=== PATIENT | male | born 1975 | race Caucasian/White ===

== ENCOUNTER 2018-08-06 15:14 | Emergency (ER) | payer BC, MEDICAID ==
--- NOTE | 2018-08-06 15:28 | Emergency Department Record ---
History of Present Illness - General Chief Complaint: Chest Pain Stated Complaint: CHEST PAIN Time Seen by Provider: 08/06/18 15:25 Source: Patient Mode of Arrival: Ambulatory Limitations: No limitations - History of Present Illness Initial Comments: The patient is here due to sharp stabbing L sided CP for almost 2 weeks. The pain onset is with any cough, twisting, bending or palpation. He denies any injury, SOB, BESSY, sweating, fever, or sputum production. The patient initially went to the [facility], [place] but was sent over to the ER. He denies any hx of similar problems and only has cardiac risk factors of tobacco use. MD Complaint: Chest pain Onset/Timin -: Days(s) Onset: During exertion Pain Location: Left chest Pain Radiation: None Severity: Severe Severity scale (1-10): 10 Quality: Sharp Consistency: Constant, Getting worse Improves With: Nothing Worsens With: Inspiration, Movement, Palpation Treatments Prior to Arrival: None - Related Data Home Medications Medication Instructions Recorded Confirmed Last Taken Atorvastatin Calcium 20 mg PO DAILY 08/06/18 08/06/18 08/05/18 Bupropion HCl [Bupropion HCl Sr] 150 mg PO DAILY 08/06/18 08/06/18 08/05/18 Doxepin HCl 25 mg PO DAILY 08/06/18 08/06/18 08/05/18 Montelukast Sodium [Singulair] 10 mg PO DAILY 08/06/18 08/06/18 08/06/18 Sertraline HCl [Zoloft] 100 mg PO DAILY 08/06/18 08/06/18 08/05/18 Previous Rx's Medication Instructions Recorded Naproxen [Naprosyn] 500 mg PO BID #14 tablet. 08/06/18 Allergies Allergy/AdvReac Type Severity Reaction Status Date / Time amoxicillin Allergy Intermediate ANAPHYLAXIS Verified 08/06/18 15:17 Penicillins Allergy Intermediate ANAPHYLAXIS Verified 12/29/13 06:47 Travel Screening - Travel/Exposure Within Last 30 Days Have you traveled within the last 30 days?: No Review of Systems Constitutional: Denies: Chills, Fever, Other ENT: Denies: Congestion, Throat pain Respiratory: Denies: Cough, Dyspnea Cardiovascular: Reports: Chest pain. Denies: Dyspnea on exertion, Palpitations Endocrine: Denies: Fatigue Gastrointestinal: Denies: Abdominal pain Genitourinary: Denies: Dysuria Musculoskeletal: Denies: Back pain Neurological: Denies: Abnormal gait Past Medical History - SOCIAL HISTORY Smoking Status: Current some day smoker Alcohol Use: Rare Drug Use: Rare Drug Use Detail:: Marijuana - RESPIRATORY Hx Respiratory Disorders: No - CARDIOVASCULAR Hx Cardio Disorders: No - NEURO Hx Neuro Disorders: Yes Hx Headaches: Yes (Migraines) - GI Hx GI Disorders: Yes Hx Irritable Bowel: Yes - Hx Genitourinary Disorders: No - ENDOCRINE Hx Endocrine Disorders: No - MUSCULOSKELETAL Hx Musculoskeletal Disorders: No - PSYCH Hx Psych Problems: No - HEMATOLOGY/ONCOLOGY Hx Hematology/Oncology Disorders: No Family Medical History Any Significant Family History?: No Physical Exam - General General Appearance: Alert, Oriented x3, Cooperative, No acute distress - Head Head exam: Atraumatic, Normocephalic - Eye Eye exam: Normal appearance, PERRL - ENT Throat exam: Normal inspection. negative: Tonsillar erythema, Tonsillar exudate - Neck Neck exam: Normal inspection, Full ROM. negative: Tenderness - Respiratory Respiratory exam: Normal lung sounds bilaterally, Chest wall tenderness (The L sided rib pain is 100%!! reproducible to palpation of the L mid ribs.). negative: Respiratory distress - Cardiovascular Cardiovascular Exam: Regular rate, Normal rhythm, Normal heart sounds - GI/Abdominal GI/Abdominal exam: Soft - Extremities Extremities exam: Normal inspection, Full ROM, Normal capillary refill. negative: Calf tenderness, Pedal edema, Tenderness - Back Image of Body Front/Back: 1 - Area of pain and tenderness. Course Vital Signs 08/06/18 15:20 Temperature 97.9 F Pulse Rate 80 Respiratory 20 Rate Blood Pressure 119/85 Pulse Ox 100 - Reevaluation(s) Reevaluation #1: The patient is doing well at this time. The pain is improved and it is still 100 %!!! reproducible. I explained to the patient that he is to take Naprosyn for pain and see his PCP for recheck next week. 08/06/18 16:38 Medical Decision Making - Data Complexity MDM Data: Labs Ordered and/or Reviewed, X-Ray Ordered and/or Reviewed, EKG Ordered and/or Reviewed - Lab Data Result diagrams: 08/06/18 15:20 08/06/18 15:20 - EKG Data -: EKG Interpreted by Me EKG: No Acute Changes, Normal EKG - Radiology Data Radiology results: Report reviewed (CXR and L Ribs: neg) Disposition Disposition: Discharge Clinical Impression: Chest wall pain Disposition: Home, Self-Care Condition: (2) Stable Instructions: Chest Wall Pain (ED) Additional Instructions: Please take the Naprosyn for pain and please see your family doctor next week for recheck. Return to the ER for any worsening symptoms of pain, or any Shortness of breath or difficulty breathing. Prescriptions: Naproxen [Naprosyn] 500 mg PO BID #14 tablet.dr Forms: Patient Portal Access Time of Disposition: 16:40 Quality - Quality Measures Quality Measures: N/A - Blood Pressure Screening View Details: Yes Does Patient Have Any of the Following: No Blood Pressure Classification: Pre-Hypertensive BP Reading Systolic Measurement: 119 Diastolic Measurement: 85 Screening for High Blood Pressure: < Pre-Hypertensive BP, F/U Documented > [ G8950] Pre-Hypertensive Follow-up Interventions: Referral to alternative/primary care provider.
[2018-08-06 15:45] LABS: BASO % 0.3 % (0-6); EOS % 1.5 % (0-6); GRAN % 64.5 % (47-80); HEMATOCRIT 44.1 % (42.0-52.0); HEMOGLOBIN 14.8 gm/dl (14.0-18.0); LYMPH % 25.8 % (16-45); MEAN CELL VOLUME 92.8 fl (81-97); MEAN CORPUSCULAR HEMOGLOBIN 31.2 pg (27-33); MEAN CORPUSCULAR HGB CONC 33.6 g/dl (32-36); MEAN PLATELET VOLUME 10.4 fl (7.4-10.4); MONO % 7.9 % (0-9); PLATELET COUNT 333 K/uL (130-400); RED BLOOD COUNT 4.75 M/uL (4.40-5.70); RED CELL DISTRIBUTION WIDTH 13.3 % (11.5-14.5); WHITE BLOOD COUNT W/O DIFF 11.6 K/uL (4.2-12.2)
[2018-08-06] MEDS ORDERED: KETOROLAC 30 MG/ML VIAL IVP ONE (15:48)
[2018-08-06 15:59] LABS: BLOOD UREA NITROGEN 16 mg/dL (6-20); EST GLOMERULAR FILTRATION RATE > 60 mL/min
[2018-08-06 16:01] LABS: PROTHROMBIN TIME (PATIENT) 10.2 SECONDS (9.5-12.1)
[2018-08-06 16:02] LABS: GLUCOSE,RANDOM 105 mg/dL (74-109)
[2018-08-06 16:05] LABS: CREATINE PHOSPHOKINASE 74 U/L (39-308)
[2018-08-06 16:07] LABS: CKMB < 1.0 ng/mL (<6.73)
--- NOTE | 2018-08-08 10:52 | RADIOLOGY REPORT ---
EXAM: CHEST, TWO VIEWS HISTORY: LEFT SIDED CHEST PAIN FOR TEN DAYS, WORSE WITH INSPIRATION AND MOVEMENT. NO INJURY OR SHORTNESS OF BREATH. TECHNIQUE: PA and lateral views of the chest were obtained. Comparison: No prior chest x-ray with which to compare. FINDINGS: The heart size is normal. The lungs appear expanded with no definite acute infiltrate seen. No pleural effusion or pneumothorax evident. IMPRESSION: THE CHEST APPEARS NEGATIVE WITH NO DEFINITE ACUTE INFILTRATE SEEN. JOB NUMBER: [id number] [facility]
--- NOTE | 2018-08-08 11:05 | RADIOLOGY REPORT ---
DATE: 08/06/2018 at 4:08 p.m. EXAM: LEFT RIBS. HISTORY: LEFT-SIDED CHEST PAIN FOR TEN DAYS; GETTING WORSE. NO HISTORY OF INJURY. TECHNIQUE: AP and oblique views of left ribs. COMPARISON: No prior left rib series. Comparison is made to the chest x-ray from today. FINDINGS: Left ribs appear intact. There is no definite fracture or destructive lesion seen. IMPRESSION: LEFT RIBS APPEAR NEGATIVE. JOB [facility]BER: [id number] [facility]
== END 2018-08-06 17:00 | disposition home or self-care (01) ==
LOC: ER 15:14
DX: R07.89 Other chest pain (principal); R06.02 Shortness of breath; R61 Generalized hyperhidrosis; F17.210 Nicotine dependence, cigarettes, uncomplicated
CPT/HCPCS: 99284 ×2; 96374; 82550; 85025; 85730; 85610; 82553; 80048; 84484; 85379; 71046; 71100; 93005; 93010; J1885

== ENCOUNTER 2019-05-19 21:45 | Emergency (ER) | payer BC ==
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
[2019-05-19] MEDS ORDERED: ALPRAZOLAM 0.25 MG TABLET PO ONE (22:50)
[2019-05-20 00:13] LABS: ABSOLUTE NEUTROPHIL COUNT 6.37; BASO % 0.2 % (0-6); EOS % 0.8 % (0-6); GRAN % 65.8 % (47-80); HEMATOCRIT 39.7 % (42.0-52.0); HEMOGLOBIN 13.2 gm/dl (14.0-18.0); MEAN CELL VOLUME 94.5 fl (81-97); MEAN CORPUSCULAR HEMOGLOBIN 31.4 pg (27-33); MEAN CORPUSCULAR HGB CONC 33.2 g/dl (32-36); MEAN PLATELET VOLUME 10.7 fl (7.4-10.4); MONO % 9.2 % (0-9); PLATELET COUNT 280 K/uL (130-400); RED CELL DISTRIBUTION WIDTH 13.3 % (11.5-14.5); WHITE BLOOD COUNT W/O DIFF 9.7 K/uL (4.2-12.2)
[2019-05-20 00:21] LABS: BLOOD UREA NITROGEN 16 mg/dL (6-20)
[2019-05-20 00:22] LABS: CREATININE 0.9 mg/dL (0.7-1.2); EST GLOMERULAR FILTRATION RATE > 60 mL/min; TOTAL PROTEIN 7.2 g/dL (6.6-8.7)
[2019-05-20 00:24] LABS: GLUCOSE,RANDOM 96 mg/dL (74-109)
[2019-05-20 00:27] LABS: ALB/GLOB RATIO 1.7 (1.1-1.8); ALBUMIN 4.5 g/dL (4.0-5.0); ALKALINE PHOSPHATASE 59 U/L (40-129); ALT/SGPT 9 U/L (<41); AST/SGOT 12 U/L (10.0-50.0)
[2019-05-20 00:28] LABS: ACETAMINOPHEN < 5.0 ug/mL (10.0-30.0); SALICYLATE < 0.3 mg/dL (2.8-20)
[2019-05-20 00:37] LABS: THYROID STIMULATING HORMONE 6.28 uIU/mL (0.270-4.20)
[2019-05-20 00:43] LABS: URINE APPEARANCE CLEAR; URINE BILIRUBIN SMALL (NEGATIVE); URINE BLOOD NEGATIVE (NEGATIVE); URINE COLOR YELLOW; URINE GLUCOSE (UA) NEGATIVE (NEGATIVE); URINE KETONE 15 mg/dL (NEGATIVE); URINE LEUKOCYTE ESTERASE NEGATIVE (NEGATIVE); URINE NITRITE NEGATIVE (NEGATIVE); URINE PROTEIN NEGATIVE (NEGATIVE)
[2019-05-20 00:49] LABS: AMPHETAMINE SCREEN URINE NOT DETECTED; BARBITURATE SCREEN URINE NOT DETECTED; BENZODIAZEPINE SCREEN URINE NOT DETECTED; COCAINE SCREEN URINE NOT DETECTED; METHADONE SCREEN URINE NOT DETECTED; METHAMPHETAMINE SCREEN NOT DETECTED; OPIATE SCREEN URINE NOT DETECTED; OXYCODONE SCREEN URINE NOT DETECTED; PHENCYCLIDINE SCREEN URINE NOT DETECTED; PROPOXYPHENE SCREEN URINE NOT DETECTED; THC SCREEN URINE DETECTED; TRICYCLIC ANTIDEPRESSANT SCRN NOT DETECTED
== END 2019-05-20 03:58 | disposition home or self-care (01) ==
LOC: ER 21:45
DX: F32.9 Major depressive disorder, single episode, unspecified (principal); F41.8 Other specified anxiety disorders; F17.210 Nicotine dependence, cigarettes, uncomplicated
CPT/HCPCS: 80053; 80305; 80320; 80329; 81003; 84443; 85025; 99284